=== PATIENT | female | born 1995 | race Two or more races ===

== ENCOUNTER → 2016-07-16 | Outpatient (CLI) | payer MEDICAID ==
[~2016-07-16] MED LIST: GADOBUTROL 7.5 MMOL/7.5 ML PFS ONE
== END | disposition home or self-care (01) ==
LOC: CFH 14:54
PROVIDERS: ATTEND Registered Nurse
DX: G43.109 Migraine with aura, not intractable, without status migrainosus (principal)
CPT/HCPCS: 70553; A9585

== ENCOUNTER → 2016-07-28 | Outpatient (CLI) | payer MEDICAID | END | disposition home or self-care (01) | LOC: CARD 08:28 | PROVIDERS: ATTEND Registered Nurse | DX: G43.109 Migraine with aura, not intractable, without status migrainosus (principal) | CPT/HCPCS: 95819 ==